=== PATIENT | female | born 1930 | race Caucasian/White ===

== ENCOUNTER 2016-04-24 22:43 | Inpatient (IN) | payer OTHER ==
[~2016-04-24] VITALS: Ht 154.9 cm; Wt 56.5 kg
[~2016-04-24 22:43] MED LIST: ADVAIR 250/501 DISK IH; ALBUTEROL17 GM IH; ALBUTEROL2.5 MG/3 M IH; AZATHIOPRINE50 MG PO; BONIVA150 MG PO; BONIVA2.5 MG PO; CALCIUM 500 MG1 EACH PO; CALTRATE PLUS1 EACH PO; CLOPIDOGREL75 MG PO; DAILY VITAMIN1 EAC8 PO; FLUTICASONE PRO16 GM BOTH NARES; FORTICAL3.7 ML NS; GALANTAMINE HBR4 MG PO; GUAIFENESIN WI120 ML PO; HYCODAN SYRUP480 ML PO; Levaquin PO; MEMANTINE HCL5 MG PO; MUCINEX1200 MG PO; PREDNISONE10 MG PO; PREDNISONE20 MG PO; PREDNISONE5 MG PO; PROAIR HFA8.5 GM IH; PROLIA60 MG/1 ML SC; SIMVASTATIN20 M1 PO; SINGULAIR10 MG PO; SYMBICORT60 INHALA1 IH; ZANTAC150 MG PO; ZOCOR20 MG PO; Zocor PO
[2016-04-24 23:25] LABS: HEMATOCRIT 38.9 % (36.0-46.0); MCH 31.5 PG (29.0-34.0); MCHC 31.6 G/DL (30.0-36.0); MCV 99.7 FL (83-99); MEAN PLAT.VOLUME 10.4 uM^3 (9.5-12.4); PLATELET COUNT 183 K/uL (156-360); RBC DIS.WIDTH-CV 14.4 % (11.8-14.6); RBC DIS.WIDTH-SD 52.3 % (39-53); WHITE BLOOD COUNT 10.7 K/uL (4.1-10.2)
[2016-04-24 23:40] LABS: CHLORIDE 103 mEq/L (99-109); GLUCOSE 116 mg/dL (70-99); POTASSIUM 3.9 mEq/L (3.7-5.4); SODIUM 138 mEq/L (136-147)
[2016-04-24 23:41] LABS: ANION GAP 10 MEQ/L (2-14)
[2016-04-24 23:43] LABS: GFR ESTIMATE (CALCULATED) 50 mL/min/
[2016-04-24 23:44] LABS: UREA NITROGEN (BUN) 27 mg/dL (9-23)
[2016-04-24 23:49] LABS: TROP-I INTERPRETATION NEGATIVE; TROPONIN-I 0.03 ng/mL (0.0-0.30)
[2016-04-25 01:02] LABS: INFLUENZA A VIRAL ANTIGEN NEGATIVE; INFLUENZA B VIRAL ANTIGEN NEGATIVE
[2016-04-25 03:59] LABS: ADD MIUA? YES; BILIRUBIN NEGATIVE; BLOOD SMALL; COLOR YELLOW ((YELLOW)); GLUCOSE (STRIP) NEGATIVE; KETONES NEGATIVE; LEUKOCYTES NEGATIVE; NITRITE NEGATIVE; PROTEIN (STRIP) NEGATIVE; SPECIFIC GRAVITY 1.019 (1.000-1.030); UROBILINOGEN 0.2 MG/DL (0.2-1.0)
[2016-04-25 04:20] LABS: BACTERIA NONE SEEN /HPF; EPITHELIAL CELLS RARE /HPF; MUCUS NONE SEEN /LPF; UCUL ADDED? NO; WHITE BLOOD CELLS 0-5 /HPF (0-5)
[2016-04-25 04:49] VITALS: BP 139/61
[2016-04-25 08:15] VITALS: BP 114/54
[2016-04-25] MEDS ORDERED: FLONASE16 G1 BOTH NARES (11:59)
[2016-04-25] MEDS ORDERED: VENTOLIN HFA18 GM IH (12:00)
[2016-04-25] MEDS ORDERED: NAMENDA10 MG PO (12:02)
[2016-04-25] MEDS ORDERED: SINGULAIR10 MG PO (12:07)
[2016-04-25] MEDS ORDERED: HYCODAN SYRUP480 ML PO (12:07)
[2016-04-25] MEDS ORDERED: SILVADENE,SSD,T50 GM TP (12:09)
[2016-04-25 23:50] VITALS: BP 104/54
[2016-04-26 06:31] LABS: EOSINOPHIL (%) 0 % (0-5); HEMATOCRIT 34.5 % (36.0-46.0); IMMATURE GRANULOCYTE (%) 1.1 % (0.0-0.7); IMMATURE GRANULOCYTE COUNT 0.1 K/uL; INSTRUMENT ABS NEUTROPHIL CT 4.9 K/uL; LYMPHOCYTE COUNT 0.4 K/uL (1.0-2.8); MCH 31.3 PG (29.0-34.0); MCV 100.9 FL (83-99); MEAN PLAT.VOLUME 10.6 uM^3 (9.5-12.4); MONOCYTE (%) 13.8 % (3-12); MONOCYTE COUNT 0.9 K/uL (0-0.8); NEUTROPHIL (%) 77.8 % (45-76); NEUTROPHIL COUNT 4.9 K/uL (1.8-6.4); PLATELET COUNT 143 K/uL (156-360); RBC DIS.WIDTH-CV 14.9 % (11.8-14.6); RBC DIS.WIDTH-SD 55.8 % (39-53); RED BLOOD COUNT 3.42 M/uL (3.80-5.20)
[2016-04-26 06:33] LABS: WHITE BLOOD COUNT 6.3 K/uL (4.1-10.2)
[2016-04-26 06:39] LABS: ANION GAP 7 MEQ/L (2-14); CHLORIDE 104 MEQ/L (99-109); GFR ESTIMATE (CALCULATED) 50 mL/min/; GLUCOSE 87 mg/dL (70-99); POTASSIUM 4.1 MEQ/L (3.7-5.4); SAMPLE HEMOLYSIS CHECK 0; SAMPLE ICTERIC CHECK 0; SAMPLE LIPEMIA CHECK 0; SODIUM 138 MEQ/L (136-147); UREA NITROGEN (BUN) 17 mg/dL (9-23)
[2016-04-26 06:55] VITALS: BP 108/55
[2016-04-26 16:30] VITALS: BP 107/53
[2016-04-27 00:12] VITALS: BP 120/55
[2016-04-27 08:43] VITALS: BP 115/58
[2016-04-27 16:30] VITALS: BP 113/78
[2016-04-28 00:13] VITALS: BP 133/62
[2016-04-28 05:46] LABS: EOSINOPHIL (%) 0 % (0-5); HEMATOCRIT 38.2 % (36.0-46.0); IMMATURE GRANULOCYTE (%) 0.7 % (0.0-0.7); INSTRUMENT ABS NEUTROPHIL CT 2.4 K/uL; LYMPHOCYTE COUNT 0.2 K/uL (1.0-2.8); MCHC 30.9 G/DL (30.0-36.0); MCV 100.3 FL (83-99); MEAN PLAT.VOLUME 10.9 uM^3 (9.5-12.4); MONOCYTE COUNT 0.2 K/uL (0-0.8); NEUTROPHIL (%) 86.8 % (45-76); NEUTROPHIL COUNT 2.4 K/uL (1.8-6.4); PLATELET COUNT 176 K/uL (156-360); RBC DIS.WIDTH-CV 14.4 % (11.8-14.6); RBC DIS.WIDTH-SD 53.3 % (39-53); RED BLOOD COUNT 3.81 M/uL (3.80-5.20)
[2016-04-28 06:07] LABS: ANION GAP 9 MEQ/L (2-14); CHLORIDE 109 MEQ/L (99-109); GFR ESTIMATE (CALCULATED) > 59 mL/min/; POTASSIUM 4.7 MEQ/L (3.7-5.4); SAMPLE HEMOLYSIS CHECK 0; SAMPLE ICTERIC CHECK 0; SAMPLE LIPEMIA CHECK 0; SODIUM 142 MEQ/L (136-147); UREA NITROGEN (BUN) 11 mg/dL (9-23)
[2016-04-28 06:10] LABS: GLUCOSE 172 mg/dL (70-99)
[2016-04-28 06:18] LABS: WHITE BLOOD COUNT 2.7 K/uL (4.1-10.2)
[2016-04-28 08:02] VITALS: BP 144/66
[2016-04-28] MEDS ORDERED: PREDNISONE10 MG PO (09:12)
[2016-04-28] MEDS ORDERED: LEVOFLOXACIN750 MG PO (09:13)
== END 2016-04-28 11:42 | disposition home health service (06) | DRG 193 ==
LOC: EME 22:43 → 3EAST 04-25 01:00 → EDOF 04-25 01:00 → 3EAST 04-25 04:24
PROVIDERS: Emergency Medicine; Family Medicine
DX: J18.0 Bronchopneumonia, unspecified organism (principal); J96.20 Acute and chronic respiratory failure, unspecified whether with hypoxia or hypercapnia; J84.10 Pulmonary fibrosis, unspecified; J47.9 Bronchiectasis, uncomplicated; G30.9 Alzheimer's disease, unspecified; J45.909 Unspecified asthma, uncomplicated; R32 Unspecified urinary incontinence; M81.0 Age-related osteoporosis without current pathological fracture; E78.5 Hyperlipidemia, unspecified; Z86.711 Personal history of pulmonary embolism; F02.80 Dementia in other diseases classified elsewhere, unspecified severity, without behavioral disturbance, psychotic disturbance, mood disturbance, and anxiety; R73.03 Prediabetes; Z99.81 Dependence on supplemental oxygen
CPT/HCPCS: 70450; 71010; 80048; 80202; 81003; 83880; 84484; 85025; 85027; 87040; 87502; 93005; 94640; 94640 76; 94799; 99202; 99281; 99285; J0456; J2543; J2930; J3370; J7050; J7500; J7512